=== PATIENT | female | born 1980 | race Caucasian/White ===

== ENCOUNTER 2021-11-02 17:24 | Emergency (ER) | payer OTHER ==
[2021-11-02] MEDS ORDERED: IBUPROFEN 600 MG TAB PO STA (21:38)
[2021-11-02] MEDS ORDERED: ONDANSETRON ODT 4 MG TAB PO STA (21:38)
--- NOTE | 2021-11-02 21:41 | ED ---
General Adult HPI - General Chief complaint: Upper Respiratory Infection Stated complaint: abd pain, weakness Time Seen by Provider: 11/02/21 21:35 Source: patient, RN notes reviewed, old records reviewed Mode of arrival: ambulatory Limitations: no limitations - History of Present Illness Initial comments: Well-appearing 40-year-old female, alert and oriented 4, presents to the emergency room with 3 days of nausea, chills frontal headache and decreased appetite. Patient states that her is positive for coronavirus 2 weeks ago. She was concerned for Covid. She is a three-quarter pack-a-day smoker. She does have a history of sinus problems. -: days(s) (3) Location: head Severity scale (1-10): 6 Quality: aching, other (pressure) Improves with: none Worsens with: none Associated Symptoms: fever/chills, headaches (frontal), malaise, nausea/vomiting Treatments Prior to Arrival: none - Related Data Previous Rx's Medication Instructions Recorded Amoxicillin/Potassium Clav 1 tab PO Q12HR 7 Days #14 tab 11/02/21 [Augmentin 875-125 Tablet] Allergies Allergy/AdvReac Type Severity Reaction Status Date / Time No Known Allergies Allergy Verified 11/02/21 19:17 Review of Systems ROS Statement: Those systems with pertinent positive or pertinent negative responses have been documented in the HPI. ROS Other: All systems not noted in ROS Statement are negative. Past Medical History Past Medical History: No Reported History History of Any Multi-Drug Resistant Organisms: None Reported Past Surgical History: No Surgical Hx Reported Past Psychological History: No Psychological Hx Reported Smoking Status: Current every day smoker Past Alcohol Use History: None Reported Past Drug Use History: None Reported General Exam Limitations: no limitations General appearance: alert, in no apparent distress Head exam: Present: atraumatic, normocephalic, normal inspection Eye exam: Present: normal appearance, PERRL, EOMI, conjunctival injection (I lateral). Absent: scleral icterus, periorbital swelling, periorbital tenderness ENT exam: Present: normal exam, mucous membranes moist, TM's normal bilaterally, other (Erythematous oropharynx) Neck exam: Present: normal inspection, full ROM. Absent: tenderness, meningismus, lymphadenopathy, thyromegaly Respiratory exam: Present: normal lung sounds bilaterally. Absent: respiratory distress, wheezes, rales, rhonchi, stridor, chest wall tenderness, accessory muscle use, decreased breath sounds Cardiovascular Exam: Present: regular rate, normal rhythm, normal heart sounds. Absent: systolic murmur, diastolic murmur, rubs, gallop, clicks GI/Abdominal exam: Present: soft, normal bowel sounds. Absent: distended, tenderness, guarding, rebound, rigid Extremities exam: Present: normal inspection, full ROM, normal capillary refill. Absent: tenderness, pedal edema, joint swelling, calf tenderness Neurological exam: Present: alert, oriented X3 Psychiatric exam: Present: normal affect, normal mood Skin exam: Present: warm, dry, intact, normal color. Absent: rash, cyanosis, diaphoretic, petechiae, pallor Course Vital Signs 11/02/21 11/02/21 19:17 22:51 Temperature 98.7 F 97.9 F Pulse Rate 70 65 Respiratory 20 18 Rate Blood Pressure 115/50 110/70 O2 Sat by Pulse 99 98 Oximetry Medical Decision Making - Medical Decision Making Well-appearing 40-year-old female, alert and oriented 4, presents to the emergency room with 3 days of nausea, chills, frontal headache and decreased appetite. Her tested positive for coronavirus 2 weeks ago. She is negative for coronavirus today. She does have a history of sinus problems. Patient will be treated for sinusitis, directed to take antibiotics as prescribed, Afrin over the counter for congestion and increase fluid intake. Follow-up with primary care doctor this week return to the emergency room with any worsening symptoms. Case was discussed with Dr. Draper. - Lab Data Lab Results 11/02/21 Range/Units 19:22 Coronavirus (PCR) Not Detected (Not Detectd) Disposition Clinical Impression: Sinusitis Disposition: HOME SELF-CARE Condition: Good Instructions (If sedation given, give patient instructions): Sinusitis (ED) Additional Instructions: Increase your fluid intake, Tylenol and or Motrin as needed for headaches. Take antibiotics as prescribed. You can use [id number] Afrin nasal spray for decongestant. Follow-up with the primary care doctor this week. Return to emergency room if any new or worsening symptoms. Prescriptions: Amoxicillin/Potassium Clav [Augmentin 875-125 Tablet] 1 tab PO Q12HR 7 Days #14 tab Is patient prescribed a controlled substance at d/c from ED?: No Referrals: Dawson Sorto MD [Primary Care Provider] - 1-2 days Time of Disposition: 21:47
[2021-11-02] MEDS ORDERED: ONDANSETRON 4 MG ODT STARTER PACK 2 TAB BTL PO STA (21:45)
[2021-11-02] MEDS ORDERED: AMOXIC-POT CLAV 875-125MG 1 EACH TAB PO STA (21:47)
[2021-11-02 22:54] VITALS: BP 110/70; PULSE 65; RESP 18; TEMP 97.9
== END 2021-11-02 22:19 | disposition home or self-care (01) ==
LOC: SUPCPDRO 17:24 → EC 17:24
DX: J32.9 Chronic sinusitis, unspecified (principal); F17.210 Nicotine dependence, cigarettes, uncomplicated
CPT/HCPCS: 87635; 99284; S0119